=== PATIENT | female | born 1960 | race Two or more races ===

== ENCOUNTER 2016-12-26 15:16 | Emergency (ER) | payer OTHER ==
[~2016-12-26] VITALS: Ht 157.5 cm; Wt 50.8 kg
[2016-12-26 15:16] VITALS: BP 119/72
== END 2016-12-26 15:45 | disposition home or self-care (01) ==
LOC: ER 15:18
DX: L03.115 Cellulitis of right lower limb (principal); J45.909 Unspecified asthma, uncomplicated; E78.00 Pure hypercholesterolemia, unspecified; E11.9 Type 2 diabetes mellitus without complications; I10 Essential (primary) hypertension
CPT/HCPCS: A4606; Z7610